=== PATIENT | male | born 1980 | race African-American/Black ===

== ENCOUNTER 2020-04-13 06:53 | Emergency (ER) | payer SELFPAY ==
[2020-04-13 07:02] VITALS: BP 190/120
[2020-04-13] MEDS ORDERED: ALBUTEROL SULFATE HFA (90 MCG/PUFF) 8 GM MDI (1 MDI/ER DISP) IH STA (07:12)
[2020-04-13] MEDS ORDERED: PREDNISONE 20 MG TABLET PO ONE (07:13)
--- NOTE | 2020-04-13 07:19 | ER Document Report ---
Entered by SHELLY AVILA SCRIBE 04/13/20 0718 Acting as scribe for:MARYAM BATISTA DO ED General - General Chief Complaint: Shortness Of Breath Stated Complaint: SHORTNESS OF BREATH Time Seen by Provider: 04/13/20 07:02 Information source: Patient Notes: This 39-year-old male with a moderate and persistent asthma presents to the emergency department complaining of shortness of breath for the past 1 1/2 days. Patient reports associated wheeze and cough. Patient states that he is visiting family and traveled from his hometown [place], [place]. Patient explains that he brought his inhaler but noticed when he arrived that is was out of medication. Patient denies fever, chills and sick contact. Patient mentions that he has an elevated blood pressure that he continues to take medication for. - Related Data Allergies/Adverse Reactions: Iodinated Contrast Media Allergy (Verified 04/13/20 06:57) Past Medical History - General Information source: Patient - Social History Smoking Status: Current Every Day Smoker Cigarette use (# per day): Yes Chew tobacco use (# tins/day): No Frequency of alcohol use: Occasional Drug Abuse: None Family History: Reviewed & Not Pertinent Patient has homicidal ideation: No - Past Medical History Cardiac Medical History: Reports: Hx Hypertension Pulmonary Medical History: Reports: Hx Asthma Review of Systems - Review of Systems Constitutional: See HPI. denies: Chills, Fever EENT: No symptoms reported Cardiovascular: No symptoms reported Respiratory: See HPI, Cough, Short of breath, Wheezing Gastrointestinal: No symptoms reported Genitourinary: No symptoms reported Male Genitourinary: No symptoms reported Musculoskeletal: No symptoms reported Skin: No symptoms reported Hematologic/Lymphatic: No symptoms reported Neurological/Psychological: No symptoms reported -: Yes All other systems reviewed and negative Physical Exam - Vital signs Vitals: Temp Pulse Resp BP Pulse Ox 97.7 F 71 23 H 190/120 H 95 04/13/20 06:54 04/13/20 06:54 04/13/20 06:54 04/13/20 06:54 04/13/20 06:54 - Notes Notes: Physical Exam: General: Alert, appears well. HEENT: Normocephalic. Atraumatic. PERRL. Extraocular movements intact. Oropharynx clear. Neck: Supple. Non-tender. Respiratory: No respiratory distress. Diminished breath sounds bilaterally with faint expiratory wheeze. Cardiovascular: Regular rate and rhythm. Abdominal: Normal Inspection. Non-tender. No distension. Normal Bowel Sounds. Back: No gross abnormalities. Extremities: Moves all four extremities. Upper extremities: Normal inspection. Normal ROM. Lower extremities: Normal inspection. No edema. Normal ROM. Neurological: Normal cognition. AAOx4. Normal speech. Psychological: Normal affect. Normal Mood. Course - Re-evaluation Re-evalutation: 04/13/20 07:46 MDM Notified by nursing staff at this point the pt has left the ED without completing treatment. - Vital Signs Vital signs: Temp Pulse Resp BP Pulse Ox 97.7 F 71 23 H 190/120 H 95 04/13/20 06:54 04/13/20 06:54 04/13/20 06:54 04/13/20 06:54 04/13/20 06:54 Discharge - Discharge Clinical Impression: Elevated blood pressure reading Asthma exacerbation Qualifiers: Asthma severity: moderate Asthma persistence: persistent Qualified Code(s): J45.41 - Moderate persistent asthma with (acute) exacerbation Condition: Good Disposition: HOME, SELF-CARE Instructions: Asthma ([facility]), High Blood Pressure ([facility]) Additional Instructions: Your blood pressure was elevated here - keep a record of that and have it rechecked. Please return here for any problems or any concerns including but not limited to shortness of breath or chest pain. Prescriptions: Prednisone 10 mg PO DAILY #21 tablet Albuterol Sulfate [Proair HFA Inhalation Aerosol 8.5 gm MDI] 2 puff IH Q4H PRN #1 mdi PRN Reason: Forms: Elevated Blood Pressure I personally performed the services described in the documentation, reviewed and edited the documentation which was dictated to the scribe in my presence, and it accurately records my words and actions.
[2020-04-13] MEDS ORDERED: ALBUTEROL SULFATE HFA (90 MCG/PUFF) 8 GM MDI IH ONE (07:29)
== END 2020-04-13 07:50 | disposition home or self-care (01) ==
LOC: ER 06:53
DX: J45.41 Moderate persistent asthma with (acute) exacerbation (principal); R06.02 Shortness of breath; R05 Cough; F17.210 Nicotine dependence, cigarettes, uncomplicated; I10 Essential (primary) hypertension; Z79.899 Other long term (current) drug therapy; Z91.041 Radiographic dye allergy status
CPT/HCPCS: 99284; J7512; J3490